=== PATIENT | male | born 1960 | race Caucasian/White ===

== ENCOUNTER 2024-06-22 08:54 | Emergency (ER) | payer BC, SELFPAY ==
[2024-06-22 08:59] VITALS: BP 150/84
[2024-06-22 09:37] VITALS: BMI 32.3
--- NOTE | 2024-06-22 09:56 | ED.GENMED ---
History of Present Illness
General
Chief Complaint: Back Pain
Source: patient
Exam Limitations: none
Time Seen by Provider: 06/22/24 09:36
Nursing documentation reviewed up to this point in time: agreed with
History of Present Illness
History of Present Illness:
64-year-old male presents with left low back pain rating down to the leg acute onset a few days ago along his office, no nausea or vomiting, no bowel or bladder incontinence, worse with movement better with rest saw his PCP given steroids and
Flexeril without much relief was up most of the night with pain, he has had similar episodes in the past but never this severe, told to stop his NSAIDs when he was prescribed steroids by his PCP pain is worse with movement better with rest has had a
hip replacement on that side by Dr. Ferguson Has had no problems postoperatively
Past History
Past History
ED Past Medical History: CAD
ED Past Surgical History: Cardiac and Orthopedic (Left hip replacement by Dr. ferguson)
Social History
Tobacco: Non-smoker
Alcohol: None
Drug: None
Personal:
Living: with family
Employment: Employed
Review of Systems
Review of Systems
All Other Systems: Not applicable
Constitutional: Denies fever
EENT: Reports no symptoms
Respiratory: Reports no symptoms
Cardiac: Reports no symptoms
ABD/GI: Reports no symptoms
: Denies dysuria, frequency, incontinence or difficulty voiding
Musculoskeletal: Reports back pain
Skin: Reports no symptoms
Phy Exam
Physical Exam
Physical Exam:
Physical Exam
General: no apparent distress, not acutely ill
Neck: No jaundice
Heart: s1/s2 regular rate and rhythm, no murmur. equal radial pulses.
Lungs: no acute respiratory distress. clear bilaterally
Neuro: alert and oriented. no focal neurological deficits minimal pain with straight leg raise on the left
Skin: no rash
Psychiatric: well kept. interactive and cooperative
Extremities: no edema.
Course
Orders/Labs/Results
Orders:
Orders
06/22/24 09:49
Ibuprofen [Motrin] 600 mg PO NOW STA
Oxycodone/Acetaminophen [Percocet 5/325] 1 tablet PO NOW STA
Lumbar Spine, 2 or 3 View [CR Lumbar Spine 2 Or 3 Views] Urgent
Comment:
Reason For Exam: pain
06/22/24 10:24
Urinalysis Reflex To Culture Urgent
Date Specimen was Collected: 06/22/24
Time Specimen was Collected: 10:23
Vital Signs
Initial and Last Documented VS:
Initial Vital Signs
Temp Pulse BP Pulse Ox
98.5 F 68 150/84 95
06/22/24 08:59 06/22/24 08:59 06/22/24 08:59 06/22/24 08:59
Last Documented Vital Signs
Temp Pulse BP Pulse Ox
98.5 F 68 150/84 95
06/22/24 08:59 06/22/24 08:59 06/22/24 08:59 06/22/24 08:59
MDM/Problems Addressed
Differential Diagnosis Includes:
Lumbar radiculopathy strain strain, doubt urinary tract pathology doubt AAA pain is positional worse with movement
*Radiology
Radiology exam reviewed: radiology read reviewed
*Pulse Oximetry
Patient hypoxic: no
*Rug Dyer Helper Interpretation
Rate: Rug Dyer Helper- N/A
*Critical Care Note
Total Time (30-74mins, 75-104mins- exclusive of procedures): Not Applicable
Update Note
Update Note:
Update urinalysis noted, no hematuria, x-ray report reviewed
ED Attending Note
-
Portions of this chart may have been created with voice recognition software.� Occasional wrong word or��sound alike� substitutions may have occurred due to the inherent limitations of voice recognition software.
Discharge Plan
Departure
Instructions: Low Back Pain (DC), Sciatica (DC), Radiculopathy (DC)
Prescriptions:
New
oxycodone-acetaminophen [Percocet] 5-325 mg tablet
1 tab PO Q4HPRN PRN (Reason: pain) Qty: 14 0RF
No Action
ibuprofen 200 mg Tablet
200 mg PO Q6H PRN (Reason: pain)
aspirin 81 mg Tablet
81 mg PO DAILY
tadalafil [Cialis] 5 mg Tablet
5 mg PO DAILY
atorvastatin 40 mg Tablet
40 mg PO DAILY
loratadine 10 mg Tablet
10 mg PO DAILY
cholecalciferol (vitamin D3) [Vitamin D3] 10 mcg (400 unit) Capsule
10 mcg PO DAILY
lisinopril 2.5 mg Tablet
2.5 mg PO DAILY Qty: 90 3RF
Referrals:
Cesar Yung MD [Family Provider] -
Interventions
Interventions:
*Risk Screen - Suicide Last Done: 06/22/24 09:02
*General Assessment Last Done: 06/22/24 09:02
*Neglect/Abuse Screening Last Done: 06/22/24 09:02
ED-Musculoskeletal Assessment Last Done: 06/22/24 09:37
Discharge Date and Time
Print Language: MALAWIAN
[2024-06-22] MEDS: PERCOCET 5/325 1 TABLET PO (10:04)
[2024-06-22] MEDS: MOTRIN 600 MG PO (10:05)
[2024-06-22 10:32] LABS: Urine Albumin Negative (Neg - Trace); Urine Bilirubin Negative (Negative); Urine Character Clear (Clear); Urine Color Yellow; Urine Glucose Negative (Negative); Urine Ketone Negative (Negative); Urine Leukocyte Negative (Negative); Urine Nitrite Negative (Negative); Urine Occult Blood Negative (Negative); Urine Urobilinogen Negative (Neg - 1+)
[2024-06-22 11:22] VITALS: BP 123/71
== END 2024-06-22 11:23 | disposition home or self-care (01) ==
LOC: EMR 08:54
PROVIDERS: EMERGENCY PHYSICIAN Emergency Medicine; FAMILY PHYSICIAN Family Medicine
DX: M54.50 Low back pain, unspecified (principal); I25.10 Atherosclerotic heart disease of native coronary artery without angina pectoris; Z96.642 Presence of left artificial hip joint
CPT/HCPCS: 99283; 72100; 81003